=== PATIENT | male | born 1985 | race Caucasian/White ===

== ENCOUNTER 2022-01-31 19:00 | Outpatient (CLI) | payer BC, OTHER | END 2022-01-31 19:01 | disposition home or self-care (01) | LOC: SLEEPLAB 19:00 | PROVIDERS: ATTEND Family Medicine | DX: G47.33 Obstructive sleep apnea (adult) (pediatric) (principal); G47.10 Hypersomnia, unspecified; G47.419 Narcolepsy without cataplexy; R53.83 Other fatigue; R06.83 Snoring; J45.909 Unspecified asthma, uncomplicated; G47.00 Insomnia, unspecified; F41.9 Anxiety disorder, unspecified; F42.9 Obsessive-compulsive disorder, unspecified | CPT/HCPCS: 95811 ==